=== PATIENT | male | born 1955 | race Caucasian/White ===

== ENCOUNTER 2018-08-09 21:20 | Emergency (ER) | payer MEDICAID, OTHER ==
[~2018-08-09] VITALS: Ht 165.1 cm; Wt 90.7 kg
[2018-08-09 21:20] VITALS: BP 144/90
--- NOTE | 2018-08-09 21:20 | NUR ---
TO BED # 12 AMBULATORY
--- NOTE | 2018-08-09 22:12 | NUR ---
PATIENT PRESENTS TO ED WITH C/O NONTRAUMATIC RIGHT SHOULDER PAIN X 3 DAYS. PATIENT STATES HE HAD HEAT THERAPY DONE TO R SHOULDER DAY AFTER PAIN, "CUPPING" . PT STATES PAIN IS WORSE NOW. PATIENT +ROM, +CMS . DENIES N/V/D; SKIN IS PINK/WARM/DRY; AAOX4 WITH EVEN AND STEADY GAIT; LUNGS CLEAR BL; HR EVEN AND REGULAR; PT DENIES ANY FEVER, CP, SOB, OR COUGH AT THIS TIME; PATIENT STATES PAIN OF 10/10 AT THIS TIME; VSS; PATIENT POSITIONED FOR COMFORT; HOB ELEVATED; BEDRAILS UP X2; BED DOWN. ER MD MADE AWARE OF PT STATUS.
--- NOTE | 2018-08-09 22:27 | NUR ---
Pt moved to bed 12.
--- NOTE | 2018-08-09 23:22 | NUR ---
PT WILL BE MOVED TO CHAIR E.
--- NOTE | 2018-08-09 23:30 | NUR ---
DR. GUTIERREZ EVALUATING PT
[2018-08-10 00:05] VITALS: BP 136/72
--- NOTE | 2018-08-10 00:05 | NUR ---
Patient discharged with v/s stable. Written and verbal after care instructions given and explained. Patient alert, oriented and verbalized understanding of instructions. Ambulatory with steady gait. All questions addressed prior to discharge. ID band removed. Patient advised to follow up with PMD. Rx of NAPROSYN 500MG given. Patient educated on indication of medication including possible reaction and side effects. Opportunity to ask questions provided and answered.
== END 2018-08-10 00:05 | disposition home or self-care (01) ==
LOC: MED 21:20
DX: M13.811 Other specified arthritis, right shoulder (principal); M75.91 Shoulder lesion, unspecified, right shoulder
CPT/HCPCS: 73030; 99283; Q0092